=== PATIENT | female | born 1945 | race Caucasian/White ===

== ENCOUNTER 2020-05-01 16:39 | Inpatient (IN) ==
[2020-05-01] MEDS ORDERED: Ondansetron ODT 4 MG TAB.RAPDIS SL PRN (20:10)
[2020-05-01] MEDS ORDERED: Naloxone 0.4 MG/ML INJ IVP PRN (20:10)
[2020-05-01 21:13] LABS: Hemoglobin 13.2 g/dL (11.5-15.4); Immature Granulocytes % 0.7 % (0-4); Lymphocytes # 0.3 K/mcL (0.6-4.6); Lymphocytes % 5.6 %; Mean Corpuscular HGB Conc 31.4 g/dL (31.6-35.5); Mean Corpuscular Hemoglobin 26.7 pg (28.0-33.3); Mean Platelet Volume 10.5 fL (9.4-12.4); Monocytes # 0.3 K/mcL (0.0-1.3); Monocytes % 4.7 %; Neutrophils # 4.9 K/mcL (1.6-8.9); Platelet Count 263 K/mcL (140-400); Red Blood Count 4.94 M/mcL (3.82-4.97); Red Cell Distribution Width 13.9 % (11.5-14.5); White Blood Count 5.5 K/mcL (4.3-11.1)
[2020-05-01 21:30] LABS: Magnesium 2.1 mg/dL (1.6-2.6); Phosphorous 3.5 mg/dL (2.7-4.5)
[2020-05-01 21:32] LABS: Alanine Aminotransferase 20 Units/L (7-52); Albumin 3.7 g/dL (3.5-5.7); Albumin/Globulin Ratio 1.2 (1.1-2.2); Alkaline Phosphatase 65 Units/L (34-104); Aspartate Amino Transferase 26 Units/L (13-39); BUN/Creatinine Ratio 16 (6-26); Bilirubin,Total 0.4 mg/dL (0.3-1.0); Blood Urea Nitrogen 13 mg/dL (8-23); Calcium 8.5 mg/dL (8.6-10.3); Carbon Dioxide 22 mEq/L (23-29); Chloride 104 mEq/L (98-107); Globulin 3.1 g/dL (2.4-3.5); Glucose 157 mg/dL (70-105); Osmolality,Calculated 281 (280-300); Potassium 4.3 mEq/L (3.5-5.1); Sodium 134 mEq/L (136-145); Total Protein 6.8 g/dL (6.4-8.9); eGFR For African Americans > 60 (> 60); eGFR For Non-African Americans > 60 (> 60)
[2020-05-01] MEDS: *HR* Heparin 5,000 UNIT/ML VIAL SQ SCH (22:05)
[2020-05-01] MEDS ORDERED: Dextrose Gel 15 GM/37.5 ML TUBE PO PRN ×2 (22:30)
[2020-05-01] MEDS ORDERED: *HR* Dextrose 50 % in Water (Vial) 50 ML VIAL IVP PRN (22:30)
[2020-05-01] MEDS ORDERED: D5% in Water 1,000 ML IVC PRN (22:30)
[2020-05-01] MEDS: Melatonin 3 MG TABLET PO SCH (23:39)
[2020-05-01] MEDS: Azithromycin 500 MG in 0.9 % Sodium Chloride 250 ML IVPB SCH (23:39)
[2020-05-02] MEDS: Insulin LISPRO 300 UNITS/3 ML VIAL SQ SCH ×3 (00:54→16:12)
[2020-05-02 01:55] LABS: Estimated Average Glucose 126 mg/dl
[2020-05-02] MEDS: *HR* Heparin 5,000 UNIT/ML VIAL SQ SCH ×3 (06:31→21:32)
[2020-05-02 08:08] LABS: Basophils % 0.2 %; Hematocrit 38.1 % (35.3-44.9); Hemoglobin 11.9 g/dL (11.5-15.4); Immature Granulocytes % 0.2 % (0-4); Lymphocytes # 0.5 K/mcL (0.6-4.6); Lymphocytes % 11.2 %; Mean Corpuscular HGB Conc 31.2 g/dL (31.6-35.5); Mean Corpuscular Hemoglobin 26.7 pg (28.0-33.3); Mean Corpuscular Volume 85.4 fL (83.0-100.0); Mean Platelet Volume 11.1 fL (9.4-12.4); Monocytes # 0.6 K/mcL (0.0-1.3); Monocytes % 12.7 %; Neutrophils # 3.6 K/mcL (1.6-8.9); Platelet Count 237 K/mcL (140-400); Red Blood Count 4.46 M/mcL (3.82-4.97); Segmented Neutrophils % 75.7 %; White Blood Count 4.8 K/mcL (4.3-11.1)
[2020-05-02 08:12] LABS: Prothrombin Time 11.8 Seconds (9.4-12.1)
[2020-05-02 08:27] LABS: BUN/Creatinine Ratio 20 (6-26); Blood Urea Nitrogen 15 mg/dL (8-23); Calcium 8.4 mg/dL (8.6-10.3); Carbon Dioxide 21 mEq/L (23-29); Chloride 106 mEq/L (98-107); Glucose 105 mg/dL (70-105); Magnesium 2.3 mg/dL (1.6-2.6); Osmolality,Calculated 289 (280-300); Potassium 4.4 mEq/L (3.5-5.1); Sodium 139 mEq/L (136-145); eGFR For African Americans > 60 (> 60); eGFR For Non-African Americans > 60 (> 60)
[2020-05-02 08:39] LABS: Thyroid Stimulating Hormone 0.387 mcIU/mL (0.340-5.600)
[2020-05-02] MEDS: cefTRIAXone 1,000 MG in Water for inj. (sterile) 10 ML IVP SCH (08:40)
[2020-05-02] MEDS ORDERED: levoFLOXacin 750 MG TABLET PO SCH (09:00)
[2020-05-02] MEDS ORDERED: Dexamethasone 4 MG/ML VIAL IVP SCH (09:00)
[2020-05-02] MEDS ORDERED: dexAMETHasone 4 MG TABLET PO SCH (09:00)
[2020-05-02] MEDS ORDERED: Pantoprazole 40 MG VIAL IVP ONE (10:30)
[2020-05-02] MEDS: Aspirin 81 MG TAB.CHEW PO SCH (10:45)
[2020-05-02] MEDS: amLODIPine 5 MG TABLET PO SCH (10:45)
[2020-05-02] MEDS: Acetaminophen 325 MG TABLET PO PRN ×2 (16:23→23:22)
[2020-05-02] MEDS: Dexamethasone 4 MG/ML VIAL IVP SCH (21:30)
[2020-05-02] MEDS: Azithromycin 500 MG in 0.9 % Sodium Chloride 250 ML IVPB SCH (21:31)
[2020-05-02] MEDS: Melatonin 3 MG TABLET PO SCH (21:32)
[2020-05-03] MEDS: Insulin LISPRO 300 UNITS/3 ML VIAL SQ SCH ×5 (01:09→19:49)
[2020-05-03 05:19] LABS: Basophils % 0.2 %; Hemoglobin 13.1 g/dL (11.5-15.4); Immature Granulocytes % 0.5 % (0-4); Lymphocytes # 0.6 K/mcL (0.6-4.6); Lymphocytes % 5.7 %; Mean Corpuscular Hemoglobin 27.6 pg (28.0-33.3); Mean Corpuscular Volume 86.5 fL (83.0-100.0); Mean Platelet Volume 10.7 fL (9.4-12.4); Monocytes # 0.7 K/mcL (0.0-1.3); Monocytes % 6.6 %; Neutrophils # 9.7 K/mcL (1.6-8.9); Platelet Count 278 K/mcL (140-400); Red Blood Count 4.74 M/mcL (3.82-4.97); Red Cell Distribution Width 14.1 % (11.5-14.5); White Blood Count 11.1 K/mcL (4.3-11.1)
[2020-05-03 05:40] LABS: Alanine Aminotransferase 22 Units/L (7-52); Albumin 3.6 g/dL (3.5-5.7); Albumin/Globulin Ratio 1.1 (1.1-2.2); Alkaline Phosphatase 64 Units/L (34-104); Aspartate Amino Transferase 26 Units/L (13-39); BUN/Creatinine Ratio 23 (6-26); Bilirubin,Total 0.4 mg/dL (0.3-1.0); Blood Urea Nitrogen 19 mg/dL (8-23); Calcium 8.7 mg/dL (8.6-10.3); Carbon Dioxide 23 mEq/L (23-29); Chloride 103 mEq/L (98-107); Globulin 3.2 g/dL (2.4-3.5); Glucose 133 mg/dL (70-105); Lactate Dehydrogenase 265 Units/L (140-271); Osmolality,Calculated 286 (280-300); Potassium 4.2 mEq/L (3.5-5.1); Sodium 136 mEq/L (136-145); Total Protein 6.8 g/dL (6.4-8.9); eGFR For African Americans > 60 (> 60); eGFR For Non-African Americans > 60 (> 60)
[2020-05-03] MEDS: *HR* Heparin 5,000 UNIT/ML VIAL SQ SCH ×3 (05:47→23:25)
[2020-05-03 05:57] LABS: Ferritin 107 ng/mL (10-120)
[2020-05-03] MEDS: cefTRIAXone 1,000 MG in Water for inj. (sterile) 10 ML IVP SCH (08:34)
[2020-05-03] MEDS: amLODIPine 5 MG TABLET PO SCH (08:36)
[2020-05-03] MEDS: Loratadine 10 MG TABLET PO SCH (08:36)
[2020-05-03] MEDS: Aspirin 81 MG TAB.CHEW PO SCH (08:36)
[2020-05-03] MEDS: Dexamethasone 4 MG/ML VIAL IVP SCH ×2 (08:37→19:29)
[2020-05-03] MEDS ORDERED: (Mirabegron [Myrbetriq] 25 MG) PO SCH (09:00)
[2020-05-03] MEDS ORDERED: (Gluc/Chon-Msm#1/C/Mang/Bos/Bor [Osteo Bi-Flex Caplet PO SCH (09:00)
[2020-05-03 10:13] LABS: C-Reactive Protein 80 mg/L (Less than 10)
[2020-05-03] MEDS: Acetaminophen 325 MG TABLET PO PRN (14:24)
[2020-05-03] MEDS: Melatonin 3 MG TABLET PO SCH (19:29)
[2020-05-03] MEDS: Azithromycin 250 MG TABLET PO SCH (19:29)
[2020-05-03] MEDS ORDERED: 0.9 % Sodium Chloride 250 ML ONE (22:32)
[2020-05-04 04:58] LABS: Basophils % 0.2 %; Hematocrit 41.1 % (35.3-44.9); Immature Granulocytes % 0.9 % (0-4); Lymphocytes # 0.4 K/mcL (0.6-4.6); Lymphocytes % 3.5 %; Mean Corpuscular HGB Conc 31.6 g/dL (31.6-35.5); Mean Corpuscular Hemoglobin 27.4 pg (28.0-33.3); Mean Corpuscular Volume 86.7 fL (83.0-100.0); Monocytes # 0.9 K/mcL (0.0-1.3); Monocytes % 7.3 %; Neutrophils # 10.2 K/mcL (1.6-8.9); Platelet Count 292 K/mcL (140-400); Red Blood Count 4.74 M/mcL (3.82-4.97); Red Cell Distribution Width 14.3 % (11.5-14.5); Segmented Neutrophils % 88.1 %; White Blood Count 11.6 K/mcL (4.3-11.1)
[2020-05-04 05:18] LABS: BUN/Creatinine Ratio 28 (6-26); Blood Urea Nitrogen 20 mg/dL (8-23); Calcium 8.3 mg/dL (8.6-10.3); Carbon Dioxide 25 mEq/L (23-29); Chloride 104 mEq/L (98-107); Glucose 136 mg/dL (70-105); Osmolality,Calculated 293 (280-300); Potassium 4.4 mEq/L (3.5-5.1); Sodium 139 mEq/L (136-145); eGFR For African Americans > 60 (> 60); eGFR For Non-African Americans > 60 (> 60)
[2020-05-04] MEDS: *HR* Heparin 5,000 UNIT/ML VIAL SQ SCH ×3 (05:38→21:46)
[2020-05-04] MEDS ORDERED: Ipratropium 1 PUFF INHALER IH PRN (07:13)
[2020-05-04] MEDS: Insulin LISPRO 300 UNITS/3 ML VIAL SQ SCH ×4 (09:11→20:06)
[2020-05-04] MEDS: Aspirin 81 MG TAB.CHEW PO SCH (10:09)
[2020-05-04] MEDS: amLODIPine 5 MG TABLET PO SCH (10:09)
[2020-05-04] MEDS: Loratadine 10 MG TABLET PO SCH (10:09)
[2020-05-04] MEDS: Furosemide 40 MG/4 ML VIAL IVP SCH (10:09)
[2020-05-04] MEDS: Dexamethasone 4 MG/ML VIAL IVP SCH ×2 (10:09→19:29)
[2020-05-04] MEDS: cefTRIAXone 1,000 MG in Water for inj. (sterile) 10 ML IVP SCH (10:10)
[2020-05-04] MEDS: Acetaminophen 325 MG TABLET PO PRN (11:57)
[2020-05-04] MEDS ORDERED: 0.9 % Sodium Chloride 250 ML ONE (17:44)
[2020-05-04] MEDS: Azithromycin 250 MG TABLET PO SCH (19:26)
[2020-05-04] MEDS: Melatonin 3 MG TABLET PO SCH (21:46)
[2020-05-05 06:08] LABS: Basophils % 0.3 %; Hemoglobin 12.7 g/dL (11.5-15.4); Immature Granulocytes % 1.5 % (0-4); Lymphocytes # 0.4 K/mcL (0.6-4.6); Lymphocytes % 2.7 %; Mean Corpuscular HGB Conc 31.8 g/dL (31.6-35.5); Mean Corpuscular Hemoglobin 27.9 pg (28.0-33.3); Mean Corpuscular Volume 87.7 fL (83.0-100.0); Mean Platelet Volume 10.5 fL (9.4-12.4); Monocytes # 0.9 K/mcL (0.0-1.3); Neutrophils # 12.9 K/mcL (1.6-8.9); Platelet Count 293 K/mcL (140-400); Red Blood Count 4.56 M/mcL (3.82-4.97); Red Cell Distribution Width 14.3 % (11.5-14.5); Segmented Neutrophils % 89.5 %; White Blood Count 14.4 K/mcL (4.3-11.1)
[2020-05-05] MEDS: *HR* Heparin 5,000 UNIT/ML VIAL SQ SCH ×3 (06:10→21:02)
[2020-05-05 06:37] LABS: Alanine Aminotransferase 28 Units/L (7-52); Albumin 3.5 g/dL (3.5-5.7); Albumin/Globulin Ratio 1.1 (1.1-2.2); Alkaline Phosphatase 66 Units/L (34-104); Aspartate Amino Transferase 29 Units/L (13-39); BUN/Creatinine Ratio 35 (6-26); Bilirubin,Total 0.5 mg/dL (0.3-1.0); Blood Urea Nitrogen 29 mg/dL (8-23); Calcium 8.8 mg/dL (8.6-10.3); Carbon Dioxide 26 mEq/L (23-29); Chloride 103 mEq/L (98-107); Globulin 3.2 g/dL (2.4-3.5); Glucose 127 mg/dL (70-105); Lactate Dehydrogenase 320 Units/L (140-271); Osmolality,Calculated 293 (280-300); Potassium 4.3 mEq/L (3.5-5.1); Sodium 138 mEq/L (136-145); Total Protein 6.7 g/dL (6.4-8.9); eGFR For African Americans > 60 (> 60); eGFR For Non-African Americans > 60 (> 60)
[2020-05-05 06:47] LABS: Ferritin 175 ng/mL (10-120)
[2020-05-05] MEDS: amLODIPine 5 MG TABLET PO SCH (07:29)
[2020-05-05] MEDS: Furosemide 40 MG/4 ML VIAL IVP SCH (07:29)
[2020-05-05] MEDS: Aspirin 81 MG TAB.CHEW PO SCH (07:29)
[2020-05-05] MEDS: Loratadine 10 MG TABLET PO SCH (07:29)
[2020-05-05] MEDS: Dexamethasone 4 MG/ML VIAL IVP SCH ×2 (07:29→21:02)
[2020-05-05] MEDS: cefTRIAXone 1,000 MG in Water for inj. (sterile) 10 ML IVP SCH (07:30)
[2020-05-05] MEDS: Insulin LISPRO 300 UNITS/3 ML VIAL SQ SCH ×4 (08:20→21:03)
[2020-05-05] MEDS: Morphine Sulfate 2 MG/ML SYRINGE IVP PRN ×2 (09:27→17:30)
[2020-05-05] MEDS: Ipratropium 1 PUFF INHALER IH SCH ×5 (10:20→23:05)
[2020-05-05] MEDS: Budesonide/Formoterol 160/4.5 1 PUFF INH IH SCH ×2 (11:29→20:25)
[2020-05-05] MEDS ORDERED: Furosemide 20 MG/2 ML VIAL IVP SCH (18:00)
[2020-05-05] MEDS: Melatonin 3 MG TABLET PO SCH (21:02)
[2020-05-05] MEDS: Azithromycin 250 MG TABLET PO SCH (21:02)
[2020-05-06] MEDS: Ipratropium 1 PUFF INHALER IH SCH ×6 (04:01→23:17)
[2020-05-06] MEDS: *HR* Enoxaparin 40 MG/0.4 ML SYRINGE SQ SCH (05:47)
[2020-05-06 06:55] LABS: Basophils # 0.1 K/mcL (0.0-0.2); Basophils % 0.4 %; Hematocrit 39.5 % (35.3-44.9); Hemoglobin 12.5 g/dL (11.5-15.4); Immature Granulocytes % 2.2 % (0-4); Lymphocytes # 0.4 K/mcL (0.6-4.6); Lymphocytes % 2.6 %; Mean Corpuscular HGB Conc 31.6 g/dL (31.6-35.5); Mean Corpuscular Hemoglobin 26.8 pg (28.0-33.3); Mean Corpuscular Volume 84.8 fL (83.0-100.0); Monocytes # 0.8 K/mcL (0.0-1.3); Neutrophils # 14.8 K/mcL (1.6-8.9); Platelet Count 340 K/mcL (140-400); Red Blood Count 4.66 M/mcL (3.82-4.97); Red Cell Distribution Width 14.3 % (11.5-14.5); Segmented Neutrophils % 89.8 %; White Blood Count 16.5 K/mcL (4.3-11.1)
[2020-05-06] MEDS: cefTRIAXone 1,000 MG in Water for inj. (sterile) 10 ML IVP SCH (07:43)
[2020-05-06] MEDS: amLODIPine 5 MG TABLET PO SCH (07:44)
[2020-05-06] MEDS: Aspirin 81 MG TAB.CHEW PO SCH (07:44)
[2020-05-06] MEDS: Loratadine 10 MG TABLET PO SCH (07:44)
[2020-05-06] MEDS: Dexamethasone 4 MG/ML VIAL IVP SCH ×2 (07:44→19:39)
[2020-05-06] MEDS: Furosemide 40 MG/4 ML VIAL IVP SCH ×2 (07:44→19:39)
[2020-05-06] MEDS: Insulin LISPRO 300 UNITS/3 ML VIAL SQ SCH ×4 (07:50→19:39)
[2020-05-06] MEDS: Budesonide/Formoterol 160/4.5 1 PUFF INH IH SCH ×2 (08:23→19:34)
[2020-05-06 12:14] LABS: BUN/Creatinine Ratio 41 (6-26); Blood Urea Nitrogen 31 mg/dL (8-23); Calcium 9.1 mg/dL (8.6-10.3); Carbon Dioxide 27 mEq/L (23-29); Chloride 101 mEq/L (98-107); Glucose 143 mg/dL (70-105); Osmolality,Calculated 295 (280-300); Sodium 138 mEq/L (136-145); eGFR For African Americans > 60 (> 60); eGFR For Non-African Americans > 60 (> 60)
[2020-05-06] MEDS ORDERED: 0.9 % Sodium Chloride 250 ML ONE (13:00)
[2020-05-06] MEDS: Acetaminophen 325 MG TABLET PO PRN (15:23)
[2020-05-06] MEDS: Morphine Sulfate 2 MG/ML SYRINGE IVP PRN (17:38)
[2020-05-06] MEDS: Melatonin 3 MG TABLET PO SCH (19:38)
[2020-05-06] MEDS: Azithromycin 250 MG TABLET PO SCH (19:38)
[2020-05-07] MEDS: Ipratropium 1 PUFF INHALER IH SCH ×6 (03:22→19:34)
[2020-05-07] MEDS: *HR* Enoxaparin 40 MG/0.4 ML SYRINGE SQ SCH (06:03)
[2020-05-07 06:13] LABS: Basophils # 0.1 K/mcL (0.0-0.2); Basophils % 0.5 %; Hematocrit 38.7 % (35.3-44.9); Hemoglobin 12.3 g/dL (11.5-15.4); Immature Granulocytes % 2.6 % (0-4); Lymphocytes # 0.6 K/mcL (0.6-4.6); Lymphocytes % 3.3 %; Mean Corpuscular HGB Conc 31.8 g/dL (31.6-35.5); Mean Corpuscular Hemoglobin 27.5 pg (28.0-33.3); Mean Corpuscular Volume 86.4 fL (83.0-100.0); Mean Platelet Volume 10.7 fL (9.4-12.4); Monocytes # 1.1 K/mcL (0.0-1.3); Monocytes % 6.3 %; Neutrophils # 15.3 K/mcL (1.6-8.9); Platelet Count 321 K/mcL (140-400); Red Blood Count 4.48 M/mcL (3.82-4.97); Red Cell Distribution Width 14.1 % (11.5-14.5); Segmented Neutrophils % 87.3 %; White Blood Count 17.5 K/mcL (4.3-11.1)
[2020-05-07 06:35] LABS: BUN/Creatinine Ratio 42 (6-26); Blood Urea Nitrogen 36 mg/dL (8-23); Calcium 9.1 mg/dL (8.6-10.3); Carbon Dioxide 29 mEq/L (23-29); Chloride 101 mEq/L (98-107); Glucose 132 mg/dL (70-105); Lactate Dehydrogenase 396 Units/L (140-271); Osmolality,Calculated 298 (280-300); Potassium 4.5 mEq/L (3.5-5.1); Sodium 139 mEq/L (136-145); eGFR For African Americans > 60 (> 60); eGFR For Non-African Americans > 60 (> 60)
[2020-05-07 06:53] LABS: Ferritin 327 ng/mL (10-120)
[2020-05-07] MEDS: Budesonide/Formoterol 160/4.5 1 PUFF INH IH SCH ×3 (07:45→19:35)
[2020-05-07 08:34] LABS: C-Reactive Protein 194 mg/L (Less than 10)
[2020-05-07] MEDS: Insulin LISPRO 300 UNITS/3 ML VIAL SQ SCH ×4 (09:00→20:33)
[2020-05-07] MEDS: amLODIPine 5 MG TABLET PO SCH (09:01)
[2020-05-07] MEDS: Aspirin 81 MG TAB.CHEW PO SCH (09:01)
[2020-05-07] MEDS: Dexamethasone 4 MG/ML VIAL IVP SCH ×2 (09:01→20:13)
[2020-05-07] MEDS: Loratadine 10 MG TABLET PO SCH (09:01)
[2020-05-07] MEDS: Furosemide 40 MG/4 ML VIAL IVP SCH ×2 (09:02→20:12)
[2020-05-07] MEDS: cefTRIAXone 1,000 MG in Water for inj. (sterile) 10 ML IVP SCH (09:02)
[2020-05-07] MEDS ORDERED: 0.9 % Sodium Chloride 250 ML ONE (12:42)
[2020-05-07] MEDS: Melatonin 3 MG TABLET PO SCH ×2 (20:12→20:35)
[2020-05-07] MEDS: Azithromycin 250 MG TABLET PO SCH ×2 (20:12→20:36)
[2020-05-07] MEDS: Morphine Sulfate 2 MG/ML SYRINGE IVP PRN (20:13)
[2020-05-07] MEDS ORDERED: Azithromycin 500 MG in 0.9 % Sodium Chloride 250 ML IVPB SCH (21:00)
[2020-05-07] MEDS ORDERED: Metoclopramide 10 MG/2 ML VIAL IVP PRN (22:09)
[2020-05-08] MEDS: Ipratropium 1 PUFF INHALER IH SCH ×7 (00:11→23:27)
[2020-05-08] MEDS: Morphine Sulfate 2 MG/ML SYRINGE IVP PRN ×4 (01:45→20:20)
[2020-05-08] MEDS: *HR* Enoxaparin 40 MG/0.4 ML SYRINGE SQ SCH (03:50)
[2020-05-08 05:53] LABS: Basophils # 0.1 K/mcL (0.0-0.2); Basophils % 0.7 %; Hematocrit 38.3 % (35.3-44.9); Hemoglobin 11.9 g/dL (11.5-15.4); Lymphocytes # 0.6 K/mcL (0.6-4.6); Lymphocytes % 3.5 %; Mean Corpuscular HGB Conc 31.1 g/dL (31.6-35.5); Mean Corpuscular Hemoglobin 26.6 pg (28.0-33.3); Mean Corpuscular Volume 85.7 fL (83.0-100.0); Mean Platelet Volume 10.9 fL (9.4-12.4); Monocytes % 5.7 %; Platelet Count 366 K/mcL (140-400); Red Blood Count 4.47 M/mcL (3.82-4.97); Red Cell Distribution Width 13.8 % (11.5-14.5); Segmented Neutrophils % 87.1 %; White Blood Count 16.9 K/mcL (4.3-11.1)
[2020-05-08 06:03] LABS: Neutrophils # 14.7 K/mcL (1.6-8.9)
[2020-05-08 06:04] LABS: BUN/Creatinine Ratio 46 (6-26); Blood Urea Nitrogen 38 mg/dL (8-23); Calcium 8.9 mg/dL (8.6-10.3); Carbon Dioxide 30 mEq/L (23-29); Chloride 101 mEq/L (98-107); Glucose 135 mg/dL (70-105); Osmolality,Calculated 299 (280-300); Potassium 4.2 mEq/L (3.5-5.1); Sodium 139 mEq/L (136-145); eGFR For African Americans > 60 (> 60); eGFR For Non-African Americans > 60 (> 60)
[2020-05-08 06:46] LABS: Platelet Estimate Normal (Normal)
[2020-05-08] MEDS: Insulin LISPRO 300 UNITS/3 ML VIAL SQ SCH ×2 (07:43→13:33)
[2020-05-08] MEDS: Dexamethasone 4 MG/ML VIAL IVP SCH (08:10)
[2020-05-08] MEDS: cefTRIAXone 1,000 MG in Water for inj. (sterile) 10 ML IVP SCH (08:11)
[2020-05-08] MEDS: Aspirin 81 MG TAB.CHEW PO SCH (08:12)
[2020-05-08] MEDS: Loratadine 10 MG TABLET PO SCH (08:12)
[2020-05-08] MEDS: Furosemide 40 MG/4 ML VIAL IVP SCH (08:14)
[2020-05-08] MEDS: amLODIPine 5 MG TABLET PO SCH (08:14)
[2020-05-08] MEDS: Budesonide/Formoterol 160/4.5 1 PUFF INH IH SCH ×2 (08:33→19:51)
[2020-05-08] MEDS ORDERED: *HR* LORazepam 2 MG/ML VIAL IVP SCH (18:30)
[2020-05-08] MEDS: *HR* LORazepam 2 MG/ML VIAL IVP PRN ×2 (19:50→20:14)
[2020-05-09 00:38] VITALS: BP 167/78
== END 2020-05-08 21:15 | disposition expired | DRG 871 ==
LOC: 2NENU → SUATTDRO 18:58
PROVIDERS: ADMIT Internal Medicine; ATTEND Family Medicine